=== PATIENT | male | born 1995 | race Caucasian/White ===

== ENCOUNTER 2017-04-16 20:15 | Emergency (ER) | payer OTHER ==
--- NOTE | 2017-04-16 20:55 | RADIOLOGY REPORT (SQ) ---
EXAM DESCRIPTION: ANKLE RIGHT COMPLETE COMPLETED DATE/TIME: 04/16/2017 8:48 pm REASON FOR STUDY: injury COMPARISON: None. NUMBER OF VIEWS: Three views. TECHNIQUE: AP, lateral, and oblique radiographic images acquired of the right ankle. LIMITATIONS: None. FINDINGS: MINERALIZATION: Normal. BONES: No acute fracture or dislocation. No worrisome bone lesions. JOINTS: No effusions. SOFT TISSUES: No soft tissue swelling. No foreign body. OTHER: No other significant finding. IMPRESSION: NEGATIVE STUDY OF THE RIGHT ANKLE. NO RADIOGRAPHIC EVIDENCE OF ACUTE INJURY. TECHNICAL DOCUMENTATION: JOB ID: [id number] [employer]- All Rights Reserved
[2017-04-16] MEDS ORDERED: HYDROCODONE/ACETAMINOPHEN 5-325 MG 6 TAB/DSPK PO PRN (21:26)
--- NOTE | 2017-04-16 21:30 | ER Document Report ---
HPI - HPI Patient complains to provider of: right ankle injury Pain Level: 2 Context: 21 yo male c/o right ankle pain. pt was skateboarding and rolled ankle. no weight bearing tolerated Associated Symptoms: None Exacerbated by: Movement, Walking Relieved by: Denies Similar symptoms previously: No Recently seen / treated by doctor: No - ROS Systems Reviewed and Negative: Yes All other systems reviewed and negative - DERM Skin Color: Normal Past Medical History - General Information source: Patient - Social History Smoking Status: Never Smoker Frequency of alcohol use: None Drug Abuse: None Lives with: Friend Family History: Reviewed & Not Pertinent Patient has suicidal ideation: No Patient has homicidal ideation: No - Medical History Medical History: Negative Renal/ Medical History: Denies: Hx Peritoneal Dialysis Vertical Provider Document - CONSTITUTIONAL Agree With Documented VS: Yes Exam Limitations: No Limitations General Appearance: WD/WN - INFECTION CONTROL TRAVEL OUTSIDE OF THE [place] IN LAST 30 DAYS: No - HEENT HEENT: Atraumatic, PERRLA - NECK Neck: Normal Inspection, Supple - RESPIRATORY Respiratory: Breath Sounds Normal, No Respiratory Distress O2 Sat by Pulse Oximetry: 99 - CARDIOVASCULAR Cardiovascular: Regular Rate, Regular Rhythm - MUSCULOSKELETAL/EXTREMETIES Musculoskeletal/Extremeties: Tender - right medial malleolus and right talus., Edema - distal SMC intact. negative: Eccymosis Course - Re-evaluation Re-evalutation: 04/16/17 21:30 xray negative for fracture. results reviewed with patient. air cast applied. crutch instruction given. pt stable for discharge - Vital Signs Vital signs: Temp Pulse Resp BP Pulse Ox 98.4 F 91 12 180/80 H 99 04/16/17 20:31 04/16/17 20:31 04/16/17 20:31 04/16/17 20:31 04/16/17 20:31 Discharge - Discharge Clinical Impression: Right ankle sprain Qualifiers: Encounter type: initial encounter Involved ligament of ankle: unspecified ligament Qualified Code(s): S93.401A - Sprain of unspecified ligament of right ankle, initial encounter Condition: Stable Disposition: HOME, SELF-CARE Instructions: Ice & Elevation ([facility]), Sprained Ankle ([facility]), Soft Ankle Splint ( [facility]), Use of Crutches ([facility]), Oral Narcotic Medication ([facility]), Ibuprofen (General ) ([facility]) Additional Instructions: your xray is negative for fracture wear splint for comfort and support use crutches until able to bear weight without pain take medications as prescribed follow up with primary care if pain persists more than 10 days Prescriptions: Ibuprofen [Motrin 800 Mg Tablet] 800 mg PO Q6H #20 tablet Forms: Elevated Blood Pressure
[2017-04-16 22:04] VITALS: BP 134/74
== END 2017-04-16 22:05 | disposition home or self-care (01) ==
LOC: ER 20:15
DX: S93.401A Sprain of unspecified ligament of right ankle, initial encounter (principal); X50.0XXA Overexertion from strenuous movement or load, initial encounter; Y93.51 Activity, roller skating (inline) and skateboarding
CPT/HCPCS: 99283; 73610; L1902